=== PATIENT | female | born 1960 | race Caucasian/White ===

== ENCOUNTER 2020-12-04 19:12 | Emergency (ER) | payer SELFPAY ==
[~2020-12-04] VITALS: Ht 167.6 cm; Wt 114.0 kg
[2020-12-04 19:37] LABS: BASO % 0 % (0-3); EOS % 0 % (0-3); HEMATOCRIT 42.6 % (36.0-47.0); HEMOGLOBIN 14.1 g/dL (12.0-15.5); LYMPH # 2.8 x10^3/uL (1.0-4.8); LYMPH % 36 % (24-48); MEAN CORPUSCULAR HEMOGLOBIN 29 pg (25-35); MEAN CORPUSCULAR HGB CONC 33 g/dL (31-37); MEAN CORPUSCULAR VOLUME 86 fL (79-100); MONO # 0.7 x10^3/uL (0.0-1.1); MONO % 9 % (0-9); NEUT # 4.2 x10^3/uL (1.8-7.7); NEUT % 55 % (31-73); PLATELET COUNT 149 x10^3/uL (140-400); RED BLOOD COUNT 4.93 x10^6/uL (3.50-5.40); RED CELL DISTRIBUTION WIDTH 13.8 % (11.5-14.5); WHITE BLOOD COUNT 7.8 x10^3/uL (4.0-11.0)
[2020-12-04 19:45] LABS: CALCIUM 8.8 mg/dL (8.5-10.1); CREATININE 0.9 mg/dL (0.6-1.0); GFR 63.9; POTASSIUM 4.4 mmol/L (3.5-5.1)
[2020-12-04 19:51] LABS: ALBUMIN 3.3 g/dL (3.4-5.0); ALBUMIN/GLOBULIN RATIO 0.7 (1.0-1.7); TOTAL BILIRUBIN 0.6 mg/dL (0.2-1.0)
--- NOTE | 2020-12-04 19:52 | ED.ADGEN ---
Past Medical History Past Medical History: No Pertinent History Past Surgical History: Tubal ligation, Other Additional Past Surgical Histo: skin cancer removed from right breast Smoking Status: Current Every Day Smoker Alcohol Use: None Drug Use: None General Adult EDM: Chief Complaint: ABDOMINAL PAIN HPI: HPI: Patient is a 60 year old female coming in for 4 days of worsening epigastric pain. Patient states she has had some diarrhea and low-grade fevers. Patient has not tried taking anything the pain prior to arrival. Says the pain is worse with movement and with eating. Pain, cough, chest pain. History of diabetes, but has not taken her medications today. Denies any use of tobacco, alcohol, drugs. Patient states she has no changes in urination. Review of Systems: Review of Systems: All other systems within normal limits except for as noted in the HPI Current Medications: Current Medications Medications (Trade) Dose Ordered Sig/Devora Start Time Stop Time Status Last Admin Dose Admin Dicyclomine HCl (Bentyl) 20 mg 1X ONCE 12/04/20 20:45 12/04/20 20:46 DC 12/04/20 20:45 20 MG Fentanyl Citrate (Fentanyl 2ml Vial) 75 mcg 1X ONCE 12/04/20 20:00 12/04/20 20:01 DC 12/04/20 19:55 75 MCG Info (CONTRAST GIVEN -- Rx MONITORING) 1 each PRN DAILY PRN 12/04/20 20:00 12/06/20 19:59 Iohexol (Omnipaque 350 Mg/ml) 90 ml 1X ONCE 12/04/20 20:00 12/04/20 20:01 DC 12/04/20 20:07 90 ML Multi-Ingredient Mouthwash/Gargle (Gi Cocktail) 20 ml STK-MED ONCE 12/04/20 20:48 12/04/20 20:49 DC Ondansetron HCl (Zofran) 4 mg 1X ONCE 12/04/20 20:00 12/04/20 20:01 DC 12/04/20 19:56 4 MG Sodium Chloride 500 ml @ 500 mls/hr 1X ONCE 12/04/20 20:00 12/04/20 20:59 DC 12/04/20 19:56 500 MLS/HR Allergies: Allergies: Allergies Coded Allergies Type Severity Reaction Last Updated Verified tramadol Allergy Unknown Itching 12/04/20 Yes Physical Exam: PE: Constitutional: Well developed, well nourished, moderate distress, non-toxic appearance. [] HENT: Normocephalic, atraumatic, bilateral external ears normal, nose normal. [] Eyes: PERRLA, conjunctiva normal, no discharge. [] Neck: No rigidity, supple, no stridor. [] Cardiovascular: Regular rate and rhythm, brisk cap refill symmetric radial and DP pulses [] Lungs & Thorax: Non labored symmetric respirations, no tachypnea or respiratory distress [] Abdomen: Soft, nondistended epigastric tenderness without guarding or rebound. Skin: Warm, dry, no erythema, no rash. [] Back: No tenderness, no CVA tenderness. [] Extremities: No deformities, range of motion grossly intact, no lower extremity edema [] Neurologic: Alert and oriented X 3, no focal deficits noted. [] Psychologic: Affect normal, judgement normal, mood normal. [] Current Patient Data: Labs: Laboratory Tests Test 12/04/20 19:30 12/04/20 19:50 White Blood Count 7.8 x10^3/uL (4.0-11.0) Red Blood Count 4.93 x10^6/uL (3.50-5.40) Hemoglobin 14.1 g/dL (12.0-15.5) Hematocrit 42.6 % (36.0-47.0) Mean Corpuscular Volume 86 fL (79-100) Mean Corpuscular Hemoglobin 29 pg (25-35) Mean Corpuscular Hemoglobin Concent 33 g/dL (31-37) Red Cell Distribution Width 13.8 % (11.5-14.5) Platelet Count 149 x10^3/uL (140-400) Neutrophils (%) (Auto) 55 % (31-73) Lymphocytes (%) (Auto) 36 % (24-48) Monocytes (%) (Auto) 9 % (0-9) Eosinophils (%) (Auto) 0 % (0-3) Basophils (%) (Auto) 0 % (0-3) Neutrophils # (Auto) 4.2 x10^3/uL (1.8-7.7) Lymphocytes # (Auto) 2.8 x10^3/uL (1.0-4.8) Monocytes # (Auto) 0.7 x10^3/uL (0.0-1.1) Eosinophils # (Auto) 0.0 x10^3/uL (0.0-0.7) Basophils # (Auto) 0.0 x10^3/uL (0.0-0.2) Sodium Level 133 mmol/L (136-145) L Potassium Level 4.4 mmol/L (3.5-5.1) Chloride Level 98 mmol/L (98-107) Carbon Dioxide Level 26 mmol/L (21-32) Anion Gap 9 (6-14) Blood Urea Nitrogen 15 mg/dL (7-20) Creatinine 0.9 mg/dL (0.6-1.0) Estimated GFR (Cockcroft-Gault) 63.9 BUN/Creatinine Ratio 17 (6-20) Glucose Level 181 mg/dL (70-99) H Lactic Acid Level 1.2 mmol/L (0.4-2.0) Calcium Level 8.8 mg/dL (8.5-10.1) Total Bilirubin 0.6 mg/dL (0.2-1.0) Aspartate Amino Transferase (AST) 84 U/L (15-37) H Alanine Aminotransferase (ALT) 107 U/L (14-59) H Alkaline Phosphatase 128 U/L (46-116) H Troponin I Quantitative < 0.017 ng/mL (0.000-0.055) Total Protein 8.0 g/dL (6.4-8.2) Albumin 3.3 g/dL (3.4-5.0) L Albumin/Globulin Ratio 0.7 (1.0-1.7) L Lipase 89 U/L (73-393) Urine Collection Type Unknown Urine Color Yellow Urine Clarity Clear Urine pH 5.5 (<5.0-8.0) Urine Specific [place] 1.025 (1.000-1.030) Urine Protein Negative mg/dL (NEG-TRACE) Urine Glucose (UA) Negative mg/dL (NEG) Urine Ketones (Stick) 40 mg/dL (NEG) Urine Blood Negative (NEG) Urine Nitrite Negative (NEG) Urine Bilirubin Small (NEG) Urine Urobilinogen Dipstick 1.0 mg/dL (0.2 mg/dL) Urine Leukocyte Esterase Negative (NEG) Urine RBC 0 /HPF (0-2) Urine WBC 1-4 /HPF (0-4) Urine Squamous Epithelial Cells Few /LPF Urine Bacteria Few /HPF (0-FEW) Urine Mucus Mod /LPF Urine Opiates Screen Pos (NEG) Urine Methadone Screen Neg (NEG) Urine Barbiturates Neg (NEG) Urine Phencyclidine Screen Neg (NEG) Urine Amphetamine/Methamphetamine Neg (NEG) Urine Benzodiazepines Screen Pos (NEG) Urine Cocaine Screen Neg (NEG) Urine Cannabinoids Screen Neg (NEG) Urine Ethyl Alcohol Neg (NEG) Laboratory Tests 12/04/20 19:30 Laboratory Tests 12/04/20 19:30 Vital Signs: Vital Signs Date Time Temp Pulse Resp B/P (MAP) Pulse Ox O2 Delivery O2 Flow Rate FiO2 12/04/20 21:40 106 28 121/69 (86) 89 12/04/20 21:04 Room Air 12/04/20 19:20 99.2 99.2 EKG: EKG: Sinus tachycardia, normal axis, heart rate 102 bpm, no ST elevation or depression, borderline QT prolongation. T waves unremarkable. No ectopy [] Heart Score: Risk Factors: Risk Factors: DM, Current or recent (<one month) smoker, HTN, HLP, family history of CAD, obesity. Risk Scores: Score 0 - 3: 2.5% MACE over next 6 weeks - Discharge Home Score 4 - 6: 20.3% MACE over next 6 weeks - Admit for Clinical Observation Score 7 - 10: 72.7% MACE over next 6 weeks - Early Invasive Strategies Radiology/Procedures: Radiology/Procedures: CTA CHEST_ABDOMEN_AND PELVIS Clinical Indication: Epigastric pain radiating to back COMPARISON: None TECHNIQUE: Multiple contiguous axial images were obtained throughout the chest, abdomen, and pelvis without and with the use of IV contrast. Axial images were reformatted into coronal and sagittal planes. MIP and 3-D reconstructions were obtained. 90 mL Omnipaque 350 was administered. One or more of the following dose reduction techniques were utilized: Automated exposure control (AEC), Adjustment of mA and/or kV according to patient size, Use of iterative reconstruction technique such as ASiR, CT scan done according to ALARA and image gently/image wisely. Findings: No aortic intramural hematoma, aneurysm, or dissection. The thyroid is symmetric. There is no axillary, mediastinal, or hilar adenopathy. The thoracic aorta diameter is normal. The cardiac size is normal. Coronary artery atherosclerotic disease. There is no pericardial effusion. The central a irways are patent. Scattered bilateral groundglass opacities. Centrilobular emphysema. No pleural e ffusion is observed. There is no pneumothorax. Hepatic steatosis. Cholelithiasis. Spleen, pancreas, and adrenal glands are unremarkable. The kidneys are unremarkable. There is no significant mesenteric or retroperitoneal adenopathy identified. There is no evidence of free intraperitoneal fluid or pneumoperitoneum. Visualized portions of the bowel are grossly unremarkable. Bladder is decompressed. Uterus is present. There is no significant pelvic ascites. No significant iliac or inguinal adenopathy is identified. Degenerative changes of the spine IMPRESSION: 1. No aortic intramural hematoma, aneurysm, or dissection. 2. Scattered bilateral groundglass opacities, which could represent edema or infection. 3. Coronary artery atherosclerotic disease. 4. Cholelithiasis.[] Course & Med Decision Making: Course & Med Decision Making Pertinent Labs and Imaging studies reviewed. (See chart for details) Patient's pain improved with GI cocktail. She also declined increased agitated essentially like being in hospitals and wanting to leave. Patient taking off her monitoring devices. Lab was notified over to see patient to offer prescription for antacid she had already signed AMA paperwork and left [] Henrik Disclaimer: Henrik Disclaimer: This electronic medical record was generated, in whole or in part, using a voice recognition dictation system. Departure Departure Impression: Primary Impression: Epigastric abdominal pain Disposition: 07 AMA/ELOPED/LWBS Referrals: NO PCP (PCP) CAPO BOYER MD Dec 04, 2020 19:52
[2020-12-04 19:58] LABS: BILIRUBIN,URINE SMALL (NEG); CLARITY,URINE CLEAR; COLOR,URINE YELLOW; NITRITE,URINE NEGATIVE (NEG); PH,URINE 5.5 (<5.0-8.0); PROTEIN,URINE NEGATIVE (NEG-TRACE)
[2020-12-04] MEDS ORDERED: CONTRAST GIVEN. MC PRN (20:00)
[2020-12-04] MEDS ORDERED: IOHEXOL 350 MG/ML 100 ML VIAL. IV ONE (20:00)
[2020-12-04] MEDS ORDERED: ONDANSETRON PF 4 MG/2 ML VIAL. IVP ONE (20:00)
[2020-12-04] MEDS ORDERED: IV NORMAL SALINE 500ML BAG 500 ML IV ONE (20:00)
[2020-12-04] MEDS ORDERED: fentaNYL PF VIAL 100 MCG/2 ML VIAL IVP ONE (20:00)
[2020-12-04 20:05] LABS: BARBITURATES NEG (NEG); BENZODIAZEPINES POS (NEG); CANNABINOIDS NEG (NEG); COCAINE NEG (NEG); METHADONE NEG (NEG); OPIATES POS (NEG); PHENCYCLIDINE NEG (NEG)
[2020-12-04 20:07] LABS: AMPHETAMINE/METHAMPHETAMINE NEG (NEG)
[2020-12-04 20:10] LABS: BACTERIA,URINE FEW /HPF (0-FEW); RBC,URINE 0 /HPF (0-2)
--- NOTE | 2020-12-04 20:31 | RAD ---
CTA CHEST_ABDOMEN_AND PELVIS Clinical Indication: Epigastric pain radiating to back COMPARISON: None TECHNIQUE: Multiple contiguous axial images were obtained throughout the chest, abdomen, and pelvis without and with the use of IV contrast. Axial images were reformatted into coronal and sagittal planes. MIP and 3-D reconstructions were obtained. 90 mL Omnipaque 350 was administered. One or more of the following dose reduction techniques were utilized: Automated exposure control (AEC), Adjustment of mA and/or k V according to patient size, Use of iterative reconstruction technique such as ASiR, CT scan done acc ording to ALARA and image gently/image wisely. Findings: No aortic intramural hematoma, aneurysm, or dissection. The thyroid is symmetric. There is no axillary, mediastinal, or hilar adenopathy. The thoracic aorta diameter is normal. The cardiac size is normal. Coronary artery atherosclerotic di sease. There is no pericardial effusion. The central airways are patent. Scattered bilateral groundglass opacities. Centrilobular emphysema. No pleural effusion is observed. There is no pneumothorax. Hepatic steatosis. Cholelithiasis. Spleen, pancreas, and adrenal glands are unremarkable. The kidney s are unremarkable. There is no significant mesenteric or retroperitoneal adenopathy identified. Th ere is no evidence of free intraperitoneal fluid or pneumoperitoneum. Visualized portions of the bow el are grossly unremarkable. Bladder is decompressed. Uterus is present. There is no significant pelvic ascites. No significant iliac or inguinal adenopathy is identified. Degenerative changes of the spine IMPRESSION: 1. No aortic intramural hematoma, aneurysm, or dissection. 2. Scattered bilateral groundglass opacities, which could represent edema or infection. 3. Coronary artery atherosclerotic disease. 4. Cholelithiasis. Electronically signed by: Alexis Gresham MD (12/04/2020 8:28 PM) [facility]
[2020-12-04] MEDS ORDERED: DICYCLOMINE 20 MG/2 ML VIAL. IM ONE (20:45)
[2020-12-04] MEDS ORDERED: LIDO:MAALOX 1:1 20 ML SINGLE DOSE. ONE (20:48)
[2020-12-04] MEDS ORDERED: LIDO:MAALOX 1:1 20 ML SINGLE DOSE. SWSW ONE (21:15)
[2020-12-04 21:40] VITALS: BP 121/69
== END 2020-12-04 21:53 | disposition left against medical advice (07) ==
LOC: ER 19:12
DX: R10.13 Epigastric pain (principal); R19.7 Diarrhea, unspecified; R50.9 Fever, unspecified; F17.200 Nicotine dependence, unspecified, uncomplicated; Z88.6 Allergy status to analgesic agent
CPT/HCPCS: 36415; 71275; 74177; 80053; 80307; 81001; 83605; 83690; 84484; 85025; 93005; 96361; 96372; 96374; 96375; 99285; J0500; J2405; J3010; J7040; Q9967